=== PATIENT | female | born 1940 | race Two or more races ===

== ENCOUNTER 2023-08-03 12:19 | Emergency (ER) | payer OTHER ==
[~2023-08-03] VITALS: Ht 149.9 cm; Wt 58.1 kg
[2023-08-03] MEDS ORDERED: VERELAN PM100 MG PO (13:14)
[2023-08-03] MEDS ORDERED: IRBESARTAN300 MG PO (13:15)
[2023-08-03] MEDS ORDERED: HYDROCHLOROTHIA25 MG PO (13:15)
[2023-08-03] MEDS ORDERED: FAMOTIDINE/PF 20 MG/2 ML VIAL IV ONE (14:15)
[2023-08-03] MEDS ORDERED: 0.9 % SODIUM CHLORIDE 500 ML IV ONE (14:30)
[2023-08-03 16:17] LABS: HEMATOCRIT 45.6 % (36.0-45.00); HEMOGLOBIN 15.5 g/dL (12.0-15.00); MEAN CELL VOLUME 91.7 fL (80.00-100.00); MEAN CORPUSCULAR HEMOGLOBIN 31.2 pg (27.00-32.0); PLATELET COUNT 205 K/uL (150-450); RED BLOOD COUNT 4.97 M/uL (4.00-6.00); RED CELL DISTRIBUTION WIDTH 13.6 % (11.5-14.5)
[2023-08-03 16:46] LABS: CALCIUM 9.8 mg/dL (8.5-10.1); CREATININE SERUM 0.82 mg/dL (0.55-1.02); GFR 66.58; POTASSIUM 3.6 mEq/L (3.5-5.1)
[2023-08-03 16:52] LABS: CKMB 5.6 NG/ML (0.5-3.6)
[2023-08-03 18:11] LABS: PH,URINE 6.5 (5.0-8.0); URINE APPEARANCE Clear; URINE BILIRRUBIN Negative (NEGATIVE); URINE BLOOD Negative; URINE COLOR Yellow; URINE GLUCOSE Negative (NEGATIVE); URINE LEUKOCYTE Trace; URINE NITRATE Negative; URINE PROTEIN Negative (NEGATIVE); URINE UROBILINOGEN 0.2 E.U./dl
[2023-08-03 18:16] LABS: URINE BACTERIA 23.9 uL (0.0-1933); URINE EPITHELIAL CELLS 6.3 uL (0.0-38.8); URINE WBC 13.8 uL (0.0-23.2)
[2023-08-03 19:08] LABS: URINE RBC 1.4 uL (0.0-20.8)
[2023-08-03 20:36] LABS: ABG PH 7.448 (7.35-7.45); ABG PO2 75.1 mmHg (80-100); BASE EXCESS 2.9 mmol/l; SaO2 95.7 %; Tco2 28.2 mmol/l; allen test SATISFACTORY; o2 21 %; puncture site RADIAL RIGHT
[2023-08-03] MEDS ORDERED: FUROsemide 40 MG/4 ML VIAL IV ONE (20:45)
[2023-08-04] MEDS ORDERED: IRBESARTAN 300 MG TABLET PO SCH (07:00)
[2023-08-04] MEDS ORDERED: FUROsemide 40 MG/4 ML VIAL IV SCH (07:00)
== END 2023-08-04 08:18 | disposition home or self-care (01) ==
LOC: ER 12:19
PROVIDERS: Nurse Practitioner Family
DX: I50.9 Heart failure, unspecified (principal); R07.89 Other chest pain; I10 Essential (primary) hypertension; R01.1 Cardiac murmur, unspecified; I51.7 Cardiomegaly
CPT/HCPCS: 36415; 71046; 82803; 93005; 96365; 96366; 99283; J1940; J7042

== ENCOUNTER 2024-11-06 09:16 | Emergency (ER) | payer OTHER ==
[~2024-11-06] VITALS: Ht 149.9 cm; Wt 60.8 kg
[~2024-11-06 09:16] MED LIST: HYDROCHLOROTHIA25 MG PO; IRBESARTAN300 MG PO; VERELAN PM100 MG PO
[2024-11-06 10:26] LABS: BASO % 0.6 % (0.1-1.2); EOS # 0.26 (0.04-0.54); EOS % 3.7 % (0.7-7.0); HEMATOCRIT 41.2 % (34.1-44.9); LYMPH # 1.07 (1.18-3.74); LYMPH % 15.4 % (19.3-53.1); MEAN CORPUSCULAR HEMOGLOBIN 30.2 pg (25.6-32.2); MONO # 0.54 (0.24-0.82); MONO % 7.8 % (4.7-12.5); NEUT # 5.04 (1.56-6.13); NEUT % 72.4 % (34.0-71.1); PLATELET COUNT 250 K/uL (163-369); RED BLOOD COUNT 4.64 M/uL (3.93-5.22); RED CELL DISTRIBUTION WIDTH 13.5 % (11.6-14.4)
[2024-11-06] MEDS ORDERED: DRAMAMINE LESS25 MG PO (11:21)
== END 2024-11-06 11:44 | disposition home or self-care (01) ==
LOC: ER 09:16
PROVIDERS: General Practice
DX: M25.562 Pain in left knee (principal); R42 Dizziness and giddiness; I10 Essential (primary) hypertension